=== PATIENT | female | born 2000 | race Caucasian/White ===

== ENCOUNTER 2024-03-28 10:36 | Outpatient (REF) | payer OTHER, MEDICARE, MEDICAID, SELFPAY ==
--- NOTE | ~2024-03-28 | XR_ITS ---
CLINICAL HISTORY: M25.571 - Pain in right ankle and joints of right foot 3 view right ankle Comparison: None Findings: No acute fractures or dislocations. No significant arthritic change or erosions. No ankle effusion. No radiopaque foreign body. IMPRESSION: 1. No acute findings. This document has been electronically signed by: Roel Gómez MD on 03/29/2024 14:57:09
--- OUTSIDE RECORDS SUMMARY | 2024-03-29 14:14 | XMS_ITS | Clinical Summary ---
Author Organization [facility] Address [address] [place] [address] Care Team Providers Care Flame Cutting Machine Operator Name Role Phone Unavailable Primary Care Provider [...]
--- OUTSIDE RECORDS SUMMARY | 2024-03-29 14:14 | XMS_ITS | Clinical Summary ---
Author Organization [facility] it Address [address] [place] [address] Care Team Providers Care Burrer Machine Name Role Phone Unavailable Primary Care Provider [...]
== END 2024-03-28 10:37 | disposition home or self-care (01) ==
LOC: HO.HOSX 10:36
PROVIDERS: Visit Provider Physician Assistant
DX: M25.571 Pain in right ankle and joints of right foot (principal); M76.71 Peroneal tendinitis, right leg; S93.401A Sprain of unspecified ligament of right ankle, initial encounter; V43.12XA Car passenger injured in collision with other type car in nontraffic accident, initial encounter; Y93.9 Activity, unspecified; Y92.410 Unspecified street and highway as the place of occurrence of the external cause; Y99.9 Unspecified external cause status
CPT/HCPCS: 73610

== ENCOUNTER 2024-03-28 13:48 | Outpatient (AMB) | payer OTHER, SELFPAY ==
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
[2024-03-28 14:17] VITALS: BMI 25.8
--- OUTSIDE RECORDS SUMMARY | 2024-03-28 16:03 | XMS_ITS | Data Portability ---
Author Organization [place] [facility] Address [address] [place] [address] Assessment Encounter Date Assessment Date Assessment LastModified by Organization Details LastModified Time 05/03/2022 05/03/2022 Sydney is in nee d of a PCP and [facility]. She was seen last year by packing attendant and is looking for an adult provider. She has significant mental health history and hospitalizations for mental health services. She is seen outpatient and not currently taking any medication as she reports poor response to medication and prefers marijuana use. She is unable to obtain a medical marijuana card without provider note. She has been seen for evaluation and met with medical marijuana program employee that is requiring provider sign off. We discussed that if this is for mental health it would likely need to come from current mental health provider. She reported understanding. She will need referral to mental health provider and counseling services. She will establish at [facility] and was given contact information. aegli Not available 05/03/2022 15:49:34 Plan of Treatment Reminders Order Date Submit Date Provider Last Modified By Organization Details Last Modified Time Details Appointments None record ed. Lab None record ed. Referral None record ed. Procedures None record ed. Surgeries None record ed. Imaging None record ed. Medication Orders None record ed. Patient TargetsNo targets recorded. Patient Instructions Encounter Date Encounter Id Patient Instructions Last Modified By Organization Details Last Modified Time 05/03/2022 [id number] Preventing Depression From Coming Back: Care Instructions aegli Not available 05/03/2022 15:49:35 learning about mood disorders aegli Not available 05/03/2022 15:49:35 iron deficiency anemia: care instructions aegli Not available 05/03/2022 15:49:35 Reason for Referral None Reported. Problems Name Problem SNOMED Code Status Onset Date Resolution Date Notes Provider Name and Address Organization Details Recorded Time Major depressive disorder 022723789 [facility] 023 [facility] 15:34:57 Mood disorder 30259224 Active 023 [facility] 15:35:16 Autistic disorder 322150918 [facility] 023 [facility] [facility] 15:35:33 Iron deficiency anemia 08577907 [facility] 15:38:08 Problem Notes None recorded. Medical Equipment None Reported. Allergies No known drug allergies Medications Name Sig Start Date Stop Date Status Note LastModified by Organization Details LastModified Time quetiapine 25 mg tablet TAKE 1 TABLET BY MOUTH DAILY AT BEDTIME active Not Available Not Available N ot Available clindamycin HCl 300 mg capsule TAKE 1 CAPSULE BY MOUTH THREE TIMES DAILY X10 DAYS active Not Available Not Available No t Available lamotrigine 25 mg tablet TAKE 3 TABLETS BY MOUTH DAILY active Not Available Not Available Not Available oxycodone-ac etaminophen 5 mg-325 mg tablet TAKE 1 TABLET BY MOUTH EVERY 6 HOURS NEEDED FOR PAIN FOR UP TO 3 DAYS active Not Available Not Available No t Available ondansetron 4 mg disintegrati ng tablet DISSOLVE 1 TABLET BY MOUTH EVERY 8 HOURS NEEDED active Not Available Not Available No t Available medroxyproge sterone 150 mg/mL intramuscula r suspension ADMINISTER 1 ML IN THE MUSCLE EVERY 3 MONTHS active Not Available Not Available No t Available cholecalcife rol (vitamin D3) 125 mcg (5,000 unit) capsule TAKE 1 CAPSULE BY MOUTH ONCE DAILY active Not Available Not Available No t Available amoxicillin 875 mg-potassium clavulanate 125 mg tablet TAKE 1 TABLET BY MOUTH TWICE DAILY active Not Available Not Available No t Available FeroSul 325 mg (65 mg iron) tablet TAKE 1 TABLET BY MOUTH THREE TIMES DAILY active Not Available Not Available Not Available Vitals Date Recorded Body height Provider Name an d Address Organization Details Last Updated DateTime 05/03/2022 175.26 cm Margarita Vasquezfmann [facility] 05/03/2022 13:40:42 Date Recorded Body mass index (BMI) Percentile per age and sex Body mass index (BMI) Body weight Provider Name and Address Organization Details Last Updated DateTime 05/03/2022 97 % 35.6 kg/m2 465310.76 g Margaritanic Lomax [facility] /[place] 05/03/2022 13:41:03 Social History Question Answer Notes LastModified by Organizat ion Details LastModified Time Tobacco Smoking Status Never Smoker Margarita Vasquezraoul beltrán, [facility]/ [place] 05/03/2022 13:42:46 Do You Have An Advance Directive? No Information not available 05/03/2022 Are You Currently Employed? No Information not available 05/03/2022 What Type Of Diet Are You Following? REGULAR Information not available 05/03/2022 What Is The Highest Grade Or Level Of School You Have Completed Or The Highest Degree You Have Received? [id number] Information not available 05/03/2022 How Many Days Of Moderate To Strenuous Exercise, Like A Brisk Walk, Did You Do In The Last 7 Days? 2 Information not available 05/03/2022 Have You Had An Unplanned Hospital Admission In The Last Year? No Information not available 05/03/2022 Have You Had An Unplanned Hospital Admission In The Last 30 Days? No Information not available 05/03/2022 Have You Had An ER Visit Since You Were Last Seen? Yes Information not available 05/03/2022 Do You Have A Medical Power Of Supervisor Stone? No Information not available 05/03/2022 How Many Children Do You Have? 0 Information not available 05/03/2022 Do You Use Protection During Sex? Always Information not available 05/03/2022 What Is Your Relationship Status? Unknown Information not available 05/03/2022 Do You Use Your Seat Belt Or Car Seat Routinely? Yes Information not available 05/03/2022 Are You Sexually Active? Yes Information not available 05/03/2022 Are There Any Smokers In Your House? Yes Information not available 05/03/2022 Do You Feel Stressed (tense, Restless, Nervous, Or Anxious, Or Unable To Sleep At Night)? [id number] Information not available 05/03/2022 Do You Use Any Illicit Or Recreational Drugs? No Information not available 05/03/2022 Do You Use Sunscreen Routinely? Yes Information not available 05/03/2022 Sex: Unknown Functional Status None recorded. Mental Status None recorded. Family History Relationship Description Onset Age of this Age Resolved Age Notes LastModified by Organization Details LastModified Time Maternal Grandmother Migraine Not available 07/2022 13:42:38 Maternal Grandmother Diabetes mellitus Not available 2022 13:42:38 Mother Asthma Not available 05/03/2022 13:42:38 Mother Anxiety disorder Not available 2022 13:42:38 Mother Depressive disorder Not available 2022 13:42:38 Mother Migraine Not availabl e 05/03/2022 13:42:38 Mother Sleep disorder Not available 2022 13:42:38 Mother Blood coagulation disorder Not available 2022 13:42:38 Mother Kidney disease Not available 2022 13:42:38 Father Depressive disorder Not available 2022 13:42:38 Father Substance abuse Not available 2022 13:42:38 Father Mental disorder Not available 2022 13:42:38 Unspecified Relation Asthma Not available 023 13:42:38 Unspecified Relation Anxiety disorder Not available 2022 13:42:38 Unspecified Relation Malignant tumor of breast Not available 2022 13:42:38 Unspecified Relation Depressive disorder Not available 2022 13:42:38 Unspecified Relation Malignant tumor of lung Not available 2022 13:42:38 Unspecified Relation Malignant tumor of colon Not available 2022 13:42:38 Unspecified Relation Malignant tumor of ovary Not available 2022 13:42:38 Unspecified Relation Migraine Not available 2022 13:42:38 Unspecified Relation Sleep disorder Not available 2022 13:42:38 Unspecified Relation Family history unknown Not available 2022 13:42:38 Unspecified Relation Obesity Not available 023 13:42:38 Unspecified Relation Heart disease Not available 2022 13:42:38 Unspecified Relation Blood coagulation disorder Not available 2022 13:42:38 Unspecified Relation Substance abuse Not available 2022 13:42:38 Unspecified Relation Diabetes mellitus Not available 2022 13:42:38 Unspecified Relation Mental disorder Not available 2022 13:42:38 Unspecified Relation Kidney disease Not available 2022 13:42:38 Medical History Condition Response Other N Stroke (CVA) N LOCK FITTER Disease/Disorder N Colon Cancer N Tonsil Infections N Breast Cancer N Depression Y Glaucoma N Nasal or Sinus Problems N Liver Disease/Disorder N Respiratory Disease/Disorder N Muscle, Joint, or Bone Problems N Autoimmune disease N Colon Disease/Disorder N Vision or Eye Problems N Mood Disorder, other Y Cancer, other N Neurologic Disease/Disorder N Skin Condition N High blood pressure N Elevated Cholesterol/Triglycerides N Anxiety Y Ear or Hearing Problems N Coronary Artery Disease (CAD) N Blood Clot (DVT/PE) N Anemia Y Kidney Disease/Disorder N Peripheral Vascular Disease (PVD) N Diabetes N Seizures/Epilepsy N Urinary Disease/Disorder N Osteopenia/Osteoporosis N Heart Attack N Substance Abuse N Bipolar Disorder Y Sleep Apnea N GERD/Reflux N Hepatitis N Heart Failure N Thyroid Disease/Disorder N Gynecological HistoryNo gynecological history recorded. Obstetrics History GPAL:G 0 P 0 0 0 0 Past Encounters Encounter ID Performer Location Encounter Start Date Encounter Closed Date Diagnosis/Indication Diagnosis SNOMED-CT Code Diagnosis ICD10 Code Diagnosis Note [id number] Lyric Ramos [facility] ([facility] [address] [place] [address] 05/03/2022 13:37:23 05/03/2022 16:32:18 Iron deficiency anemia 35328553 D50.9 She will need CBC and iron studies. Major depr essive disorder 599045131 F32.9 She will need a new referral to local provider to start counseling and medication recommenda tions. No medication s at present. Discussed use of crisis interventi on. No SI/HI or active plan at present. Records to be requested at in person visit. Mood disorder 24383209 F 39 She will need a new referral to local provider to start counseling and medication recommenda tions. No medication s at present. Records to be requested at in person visit. Health Concerns Section Related Observation LastModified by Organization Detai ls LastModified Time None Recorded Concern Status LastModified by Organization Details LastModified Time None Recorded Advance Directives Directive N: Payers Encounter Date Sequence Insurance Name Policy Number Policy Hendrickson Covered Member ID Hendrickson Member ID Guarantor Name 05/03/2022 2 [place] [facility] Sydney Hallman [id number] Sydney Hallman Notes Date Note Type Note Provider Name and Address Organization Details Recorded Time 05/03/2022 text/html Sydney is new establish patient. She was last seen by packing attendant in [place], [place] at [facility], July 2021. Mental HealthShe has significant history of ASD, major depression, mood disorder. She is currently seen by [facility] behavioral health for mental health medication but has not been to counseling. She has tried lamictal, seroquel, trazadone for medication but is not taking any of these to date or for the past 6 months. She has been self medicating with marijuana, but is unable to get medical marijuana card with out physician note. She would like to see another mental health provider with more services and trauma counseling. she denies any SI/HI or intrusive thoughts at present, though had SI about a week ago with no plan. She is calling crisis intervention about 3 times per week for feeling depressed and behavior changes. Her mother is present during this conversation and reports prior DCYF involvement due to mental health history and numerous hospitalizations. She reports last hospitalization was in 2019 [place], though [facility] set this up and she is not sure of the facility. Prior she was hospitalized in [place], [place]; [place], [place] in both behavioral and CBAT units inpatient.She denies any ESTELLA except for daily marijuana use. Family HistoryShe has family history or schizophrenia including her father, uncle, paternal cousin and maternal cousin. Mother is a and suffers from PTSD. Sydney denies any hallucinations at present. Medical historyPoor dental hygeine and dental caries/abcess due to sensory issues. Recent extraction of 10 teeth.MANUELITO- was on supplementation until 2 months ago. Asymptomatic. CHAPIS Diaz - [facility] 05/03/2022 15:49:45 OBGyn Episode No OBEpisode recorded.
--- OUTSIDE RECORDS SUMMARY | 2024-03-28 16:03 | XMS_ITS | Clinical Summary ---
Author Organization [facility] Address [address] [place] [address] Care Team Providers Care Raw Juice Weigher Name Role Phone Unavailable Primary Care Provider Unavailabl e Allergies Active Allergy Reactions Criticality Noted Date Comments Midazolam 03/26/2022 Medications Medication Sig Dispensed Refills Start Date End Date Status ondansetron (ZOFRAN-ODT) 4 MG disintegrating tablet Take 1 tablet (4 mg total) by mouth every 8 (eight) hours as needed for nausea. 12 tablet 0 03/26/2022 Active HYDROcodone-acetamino phen (NORCO) 5-325 MG per tablet Take 1 tablet by mouth every 6 (six) hours as needed for pain. 12 tablet 0 05/23/2022 Active ibuprofen 600 MG tablet Take 1 tablet (600 mg total) by mouth every 6 (six) hours as needed for pain. 20 tablet 0 05/23/2022 Active albuterol 108 (90 Base) MCG/ACT inhaler Inhale 2 puffs into the lungs every 4 (four) hours as needed for wheezing or shortness of breath. 1 each 0 05/23/2022 Active oxyCODONE (ROXICODONE) 5 MG immediate release tablet Take 1 tablet (5 mg total) by mouth every 6 (six) hours as needed for pain. 12 tablet 0 06/18/2022 Active diphenhydrAMINE (BENADRYL) 25 mg capsule Take 1 capsule (25 mg total) by mouth every 6 (six) hours as needed for itching or allergies (Migraine type headache). 30 capsule 0 06/18/2022 Active ibuprofen 600 MG tablet Take 1 tablet (600 mg total) by mouth every 6 (six) hours as needed for pain. 30 tablet 0 06/18/2022 Active ondansetron (ZOFRAN-ODT) 8 MG disintegrating tablet Take 0.5 tablets (4 mg total) by mouth every 8 (eight) hours as needed for nausea. 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 04/27/2022 Social History Tobacco Use Types Packs/Day Years Used Date Smoking Tobacco: Some Days Cigarettes Smokeless Tobacco: Never Tobacco Cessation:Ready to Q uit: Not Asked; Counseling Given: Not Answered Sex and Gender Information Value Date Recorded Sex Assigned at Female 03/26/2022 6:13 PM EST Gender Identity Female 06/18/2022 2:32 AM EDT Sexual Orientation Not on file Job Start Date Occupation Industry Not on file Not on file Not on file Last Filed Vital Signs Vital Sign Reading Time Taken Comments Blood Pressure 118/68 06/18/2022 5:47 AM EDT Pulse 68 06/18/2022 5:47 AM EDT Temperature 36.7 ??C (98.1 ??F) 06/18/2022 5:47 AM ED T Respiratory Rate 16 06/18/2022 5:47 AM EDT Oxygen Saturation 98% 06/18/2022 5:47 AM EDT Inhaled Oxygen Concentration - - Weight 112 kg (247 lb) 04/27/2022 5:57 PM EST Height 175.3 cm (5' 9 ) 04/27/2022 5:57 PM EST Body Mass Index 36.48 04/27/2022 5:57 PM EST Plan of Treatment Health Maintenance Due Date Last Done Comments Hepatitis C Screening 2002 Hepatitis B Vaccines (3 of 3 - 3-dose series) 05/17/2003 03/22/2003, 2002 Pneumococcal Vaccine (1 of 1 - PPSV23 or PCV20) 2008 11/27/2003, 2002, 2002, Additional history exists Depression Screening 2014 Gonorrhea and Chlamydia Screening 05/23/2015 Preventative Health Evaluation 2020 DTap / Tdap / Td (4 - Tdap) 05/22/202110/29, 2002, 2002 Cervical Cancer Screening (Pap Smear) 05/23/2023 COVID-19 Vaccine ( season) 2023 09/28/2021, 08/14/2020, 07/24/2020 Influenza Vaccine (#1) 2023 0, 12/14/2018, 02/07/2018, Additional history exists RSV Ped < 20 months Aged Out No longe r eligible based on patient's age to complete this topic
--- OUTSIDE RECORDS SUMMARY | 2024-03-28 16:03 | XMS_ITS | Clinical Summary ---
[facility] Address [address] [place] [address] Care Team Providers Care Glass Tube Bender Name Role Phone Unavailable Primary Care Provider Unavailabl e Medical History Medical History Date Comments Autism DX:Autism Asthma DX:Asthma Social History Tobacco Use Types Packs/Day Years Used Date Smoking Tobacco: Some Days Smokeless Tobacco: Never Sex and Gender Information Value Date Recorded Sex Assigned at Not on file Gender Identity Not on file Sexual Orientation Not on file Obstetrics History Plan of Treatment Health Maintenance Due Date Last Done Comments Gonorrhea/Chlamydia Screening 2002 Pneumococcal Vaccine: Pediat rics (0 to 5 Years) and At-Risk Patients (6 to 64 Years) (1 of 2 - PCV) 2008 HPV Vaccines (1 - 3-dose series) 2017 DTaP,Tdap,and Td Vaccines (1 - Tdap) 2021 Hepatitis B Vaccines (1 of 3 - 19+ 3-dose series) 2021 Annual Well Child Visit (3-2 1 years old) 01/26/2022 Depression Screening 01/26/2022 HIV Screening 01/26/2022 Hepatitis C Screening 01/26/2022 Social Influencers of Health Screening 01/26/2022 Cervical Cancer Screening: P ap Smear 05/23/2023 COVID-19 Vaccine ( - 2023-2 5 season) 2023 Influenza Vaccine (#1) 2023 HIB Vaccines Aged Out No longer eligi ble based on patient's age to complete this topic Hepatitis A Vaccines Aged Out No long er eligible based on patient's age to complete this topic IPV Vaccines Aged Out No longer eligi ble based on patient's age to complete this topic MMR Vaccines Aged Out No longer eligi ble based on patient's age to complete this topic Meningococcal ACWY Vaccine Aged Out N o longer eligible based on patient's age to complete this topic RSV Immunization Patients Un estephania 20 months Aged Out No longer eligible b ased on patient's age to complete this topic Varicella Vaccines Aged Out No longer eligible based on patient's age to complete this topic
== END 2024-03-28 14:53 | disposition home or self-care (01) ==
PROVIDERS: Visit Provider Physician Assistant
DX: S93.401A Sprain of unspecified ligament of right ankle, initial encounter (principal); M76.71 Peroneal tendinitis, right leg; V49.59XA Passenger injured in collision with other motor vehicles in traffic accident, initial encounter; Z04.3 Encounter for examination and observation following other accident
CPT/HCPCS: 99203; G2211

== ENCOUNTER → 2024-03-28 13:58 | Outpatient (BNV) | payer OTHER, MEDICARE, MEDICAID, SELFPAY | PROVIDERS: Visit Provider Radiology Diagnostic Radiology | DX: M25.571 Pain in right ankle and joints of right foot (principal) | CPT/HCPCS: 73610 ==

== ENCOUNTER 2024-05-23 12:47 | Outpatient (AMB) | payer OTHER, MEDICARE, MEDICAID, SELFPAY ==
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
[2024-05-23 12:50] VITALS: BMI 25.8
== END 2024-05-23 13:40 | disposition home or self-care (01) ==
LOC: HO.HOS 12:47
PROVIDERS: Visit Provider Physician Assistant
DX: S93.401A Sprain of unspecified ligament of right ankle, initial encounter (principal); M76.71 Peroneal tendinitis, right leg; Z04.3 Encounter for examination and observation following other accident
CPT/HCPCS: 99213; G2211

== ENCOUNTER 2024-10-09 13:00 | Outpatient (AMB) | payer MEDICARE, OTHER, SELFPAY ==
--- NOTE | 2024-10-09 13:05 | MHC.OFFVIS ---
Vital Signs 10/09/24 13:17 Height 5 ft 10 in Weight 177 lb BMI 25.4 BP 118/72 Blood Pressure Location Rt brachial Position Sitting Pulse 70 Pulse Source Pulse Oximeter Pulse Oximetry (%) 98 Oxygen Delivery Method Room Air Intake Visit Reasons: Severe Constipation Intake Note: New pt for initial eval of reportedly severe CIC. CC: C.O. severe constipation despite current therapy, BRB per rectum intermittently, umbilical abd pain intermittently. Pt denies any additional sx at this time. Boot Lace Cutter Machine Required: No Accompanied by: Self / Same As Patient Allergies midazolam (From Versed) Allergy (Verified 10/09/24 13:05) combative HPI HPI Severe Constipation: Details: 24-year-old F trans to M is presenting to our office for initial consultation. Patient has been dealing with constipation since his teenage years. Currently he is taking Dulcolax 1-2 tablets along with Colace. Patient reports that usually it has no affect. Sometimes no bowel movement for over a week. Today patient reports last bowel movement was week ago. Multiple visits to ED for abdominal pain caused by severe constipation. At one point patient was seen in the ER, CT scan show abundance of stool, unable to pass the stool. Unable to digitally remove stool. Patient reports that his mom also suffers from constipation. In the past week patient reports increased acid reflux and dyspepsia without dysphagia or odynophagia. Patient reports that happens to him when he is constipated for long period of time. Abdominal pain upper abdomen, however patient reports that when he is constipated for a long time the pain is throughout the his all abdomen. Occasional blood in the stool when he is straining. Reports occasionally black stool. [facility] Medical History Constipation Surgical History History of tonsillectomy History of dental surgery Social History Patient Tobacco Use Status: Never used Tobacco Current occupational status: unemployed Review of Systems Const Denies weight gain and Denies weight loss ENT Reports no additional complaints, Denies dysphagia and Denies odynophagia Card Reports no additional complaints Resp Reports no additional complaints GI Reports abdominal pain, Denies belching, Denies melena, Denies bloating, Denies change in bowel habits, Reports constipation, Denies dysphagia, Denies excessive flatus, Denies dyspepsia, Denies heartburn, Denies diarrhea, Denies loose stools, Denies nausea, Denies odynophagia and Denies vomiting Reports no additional complaints Musc Reports no additional complaints Neuro Reports no additional complaints Psych Reports no additional complaints Endo Reports no additional complaints Physical Exam Vital Signs: Last Vital Signs Pulse 70 10/09/24 13:17 BP 118/72 10/09/24 13:17 Pulse Ox 98 10/09/24 13:17 Oxygen Delivery Method Room Air 10/09/24 13:17 BMI result Body Mass Index 25.4 Const General: healthy appearing, no acute distress and well developed Nutritional Appearance: well nourished Orientation/consciousness: patient oriented x3 Resp Effort & Inspection: normal respiratory effort, able to speak in complete sentences, no tracheal deviation and symmetric chest movement Auscultation: clear to auscultation bilaterally Cardio Rate: regular rate GI Inspection: Yes normal to inspection and No distended Palpation (GI): Soft to palpation, not firm, nontender and No hepatosplenomegaly present Auscultation: normal bowel sounds General: Yes no CVA tenderness Back/Spine/Pelvis Back: no CVA tenderness Skin General skin exam: elasticity normal, turgor normal and dry skin Neuro General: patient oriented x3 Psych Appearance: grossly normal Mental Status: mental status grossly normal Assessment & Plan Assessment & Plan (1) Constipation: Code(s): K59.00 - Constipation, unspecified Qualifiers: Constipation type: slow transit constipation Qualified Code(s): K59.01 - Slow transit constipation (2) IBS (irritable bowel syndrome): Code(s): K58.9 - Irritable bowel syndrome, unspecified Qualifiers: Irritable bowel syndrome type: with constipation Qualified Code(s): K58.1 - Irritable bowel syndrome with constipation (3) GERD (gastroesophageal reflux disease): Code(s): K21.9 - Gastro-esophageal reflux disease without esophagitis Qualifiers: Esophagitis presence: esophagitis presence not specified Qualified Code(s): K21.9 - Gastro-esophageal reflux disease without esophagitis (4) Abdominal pain: Code(s): R10.9 - Unspecified abdominal pain Qualifiers: Abdominal location: generalized Qualified Code(s): R10.84 - Generalized abdominal pain Plan Patient was encouraged to increase fluid intake and activity to promote better bowel motility. Patient can try fiber with pre info biotics. Magnesium citrate given to him he can take it half of bilateral when he gets home and if no results in 2-3 hours he can take a 2nd have. He can use it as needed if no bowel movements for 2-3 days. I will start him on Amitiza. Tried starting patient on Linzess, however insurance does not cover it. Patient will return in 3 weeks. He will call us if he will have worsening symptoms. He is agreeable to this plan and verbalizes understanding of instructions. He was given the opportunity to ask questions and all questions answered. Thank you for allowing me to participate in his care Medications: New lubiprostone (Amitiza) 24 mcg PO DAILY 30 caps 3RF K59.04 - Chronic idiopathic constipation magnesium citrate (Citrate of Magnesia oral) 150 mL PO DAILY PRN 296 mL 5RF constipation K59.00 - Constipation, unspecified Coding Level of Care Code New Pt Level 4 (63750) Diagnoses Slow transit constipation K59.01 Constipation type: slow transit constipation Irritable bowel syndrome with constipation K58.1 Irritable bowel syndrome type: with constipation Gastroesophageal reflux disease, unspecified whether esophagitis present K21.9 Esophagitis presence: esophagitis presence not specified Generalized abdominal pain R10.84 Abdominal location: generalized Time Spent (min) 50 Comment 35 minutes spent with patient and additional 15 minutes spent reviewing his records
[2024-10-09 13:17] VITALS: BP 118/72; PULSE 70; O2SAT 98; BMI 25.4
--- OUTSIDE RECORDS SUMMARY | 2024-10-09 13:48 | XMS_ITS | Clinical Summary ---
Author Organization [facility] Address [address] [place] [id number] Care Team Providers Care Electric Blanket Packer Name Role Phone Javan Baca Primary Care Provider [phone] Allergies Active Allergy Reactions Criticality Noted Date Comments Midazolam Other (See Comments),Unknown/Patie nt and Family Unable to Define High 03/25/2022 combative pt has a paradoxical reaction to Versed. Becomes agitated and combative. Medications lactulose (ENULOSE) 10 gm/15 mL solution Take 10-20 mL (6.6667-13.33 33 g total) by mouth daily as needed (constipation ). take with eight ounces of water 320 mL 08/15/2024 Active docusate sodium (COLACE) 100 MG capsule Take 1-2 capsules (100-200 mg total) by mouth nightly as needed for constipation. Take with of water 30 capsule 08/15/2024 Active linaclotide (LINZESS) 145 MCG Cap capsule Take 1 capsule (145 mcg total) by mouth every morning before breakfast. 30 capsule 08/19/2024 Active tamsulosin (FLOMAX) 0.4 MG capsuleIndicati ons:Urinary retention with incomplete bladder emptying Take 1 capsule (0.4 mg total) by mouth daily. 30 capsule 1 08/22/2024 Active Active Problems Problem Noted Date Diagnosed Date Urinary retention with incomplete bladder emptyi ng 08/22/2024 Encounters Date Type Department Care Team Description 08/22/2024 1:45 PM EDT Office Visit [facility] [address] [place] [address] [place] [phone] Dixon Castillo MD Urinary retention with incomplete bladder emptying (Primary Dx) 08/22/2024 Travel 08/19/2024 10:08 AM EDT - 08/19/2024 6:33 PM EDT Emergency [facility] Emergency Department [address] [place] [phone] Kady De Los Santos MD Constipation (Primary Dx) Discharge Disposition: Home or Self Care 08/19/2024 Travel 08/16/2024 2:05 PM EDT - 08/16/2024 4:32 PM EDT Emergency [facility] Emergency Department [address] [place] [phone] Sawyer Cevallos APRN Generalized weakness (Primary Dx); Constipation Discharge Disposition: Home or Self Care 08/15/2024 1:21 AM EDT - 08/15/2024 1:[address] [facility] Emergency Department [address] [place] [phone] Alise Erwin PA-C Constipation (Primary Dx); Urinary retention Discharge Disposition: Home or Self Care 08/15/[address] [phone] System, Provider Not In 08/14/2024 Travel from Last 3 Months Social History Tobacco Use Types Packs/Day Years Used Date Smoking Tobacco: Unknown Tobacco Cessation:Counseling Given: Not Answered Comments No Sex and Gender Information Value Date Recorded Sex Assigned at Female 06/16/2024 8:43 PM EDT Legal Sex Female 7:53 PM EDT Gender Identity Transgender Male 06/16/2024 8:43 PM EDT Sexual Orientation Choose not to disclose 2024 8:43 PM EDT Last Filed Vital Signs Vital Sign Reading Time Taken Comments Blood Pressure 117/78 08/22/2024 1:41 PM EDT Pulse 93 08/22/2024 1:41 PM EDT Temperature 36.9 C (98.4 F) 08/19/2024 10:07 AM EDT Respiratory Rate 18 08/19/2024 5:04 PM EDT Oxygen Saturation 99% 08/19/2024 5:04 PM EDT Inhaled Oxygen Concentration - - Weight 85.5 kg (188 lb 7.9 oz) 08/19/2024 10:07 AM EDT Height 180.3 cm (5' 11 ) 08/19/2024 10:07 AM EDT Body Mass Index 26.29 08/19/2024 10:07 AM EDT Plan of Treatment Health Maintenance Due Date Last Done Comments Hepatitis C Virus Screening 2002 HIV Screening 05/23/2015 HPV Vaccines (1 - 3-dose series) 2017 DTaP/Tdap/Td Vaccines (1 - Tdap) 2021 Hepatitis B Vaccines (1 of 3 - 19+ 3-dose series) 2021 Pneumococcal Vaccine: Pediat keven (0-5 Years) and At-Risk Patients (6 to 49 Years) (1 of 2 - PCV) 2021 Pap Smear (Ages 21-65) 05/23/2023 COVID-19 Vaccine ( - 2023-2 5 season) 2023 09/28/2021, 08/14/2020, 07/24/2020 Influenza Vaccine 09/28/2024 04/27/2024, , 12/14/2018, Additional history exists Procedures Procedure Name Priority Date/Time Associated Diagnosis Comments URINALYSIS WITH REFLEX TO MICROSCOPIC AND CULTURE STAT 08/19/2024 1:08 PM EDT LACTIC ACID, PLASMA STAT 08/19/2024 1 2:18 PM EDT LIPASE STAT 08/19/2024 12:18 PM EDT MAGNESIUM STAT 08/19/2024 12:18 PM EDT COMPREHENSIVE METABOLIC PANEL STAT 08/19/2024 12:18 PM EDT COMPLETE BLOOD COUNT, WITH DIFFERENTIAL STAT 08/19/2024 12:18 PM EDT LIPASE STAT 08/16/2024 2:44 PM EDT COMPREHENSIVE METABOLIC PANEL STAT 08/16/2024 2:44 PM EDT COMPLETE BLOOD COUNT, WITH DIFFERENTIAL STAT 08/16/2024 2:44 PM EDT URINALYSIS WITH REFLEX TO MICROSCOPIC AND CULTURE STAT 08/15/2024 10:[address] ABDOMEN+PELVIS W/CONTRAST STAT 08/15/2024 7:31 AM EDT BETA-HCG, QUALITATIVE Routine 08/15/2024 2:01 AM EDT LIPASE STAT 08/15/2024 2:01 AM EDT COMPREHENSIVE METABOLIC PANEL STAT 08/15/2024 2:01 AM EDT COMPLETE BLOOD COUNT, WITH DIFFERENTIAL STAT 08/15/2024 2:01 AM EDT XR ABDOMEN 1 VIEW STAT 08/14/2024 10: 11 PM EDT from Last 3 Months Results * Urinalysis with Reflex to Microscopic and Culture (08/19/2024 1:08 PM EDT) Only the most recent of2 resultswithin the time period is included. Color Straw 08/19/2024 1:18 PM EDT [facility] Clarity Clear 08/19/2024 1:18 PM EDT [facility] Specific Points 1.008 1.003 - 1.030 08/19/2024 1:18 PM EDT [facility] pH 7.0 5.0 - 8.0 08/19/2024 1:18 PM EDT [facility] Leukocyte Esterase Negative Negative 08/19/2024 1:18 PM EDT [facility] Nitrite Negative Negative 08/19/2024 1:18 PM EDT [facility] Protein Negative Negative 08/19/2024 1:18 PM EDT [facility] Glucose Negative Negative mg/dL 08/19/2024 1:18 PM EDT [facility] Ketones Negative Negative 08/19/2024 1:18 PM EDT [facility] Blood Negative Negative 08/19/2024 1:18 PM EDT [facility] Bilirubin Negative Negative 08/19/2024 1:18 PM EDT [facility] Urine Urine specimen obtained by clean catch procedure / Unknown 08/19/2024 1:08 PM EDT 08/19/2024 1:12 PM EDT Kady De Los Santos MD URINE ORDERABLES Final Res ult [facility] [address] [place] [address], [facility] [address] [place] [address] * (ABNORMAL) Complete Blood Count, with Differential (08/19/2024 12:18 PM EDT) Only the most recent of3 resultswithin the time period is included. White Blood Cell Count 9.2 4.0 - 11.0 Thou/uL 08[facility] Platelet Count 260 150 - 450 Thou/uL 08/19/2024 12:[facility] Hemoglobin 14.9 11.7 - 15.7 g/dL 08/19/2024 12:30 PM EDT [facility] Hematocrit 44.7 35.0 - 47.0 % 08/19/2024 12:30 PM EDT [facility] Red Blood Cell Count 5.03 4.00 - 5.40 Mil/uL 08/19/2024 12:30 [facility] MCV 89 80 - 100 fL 08/19/2024 12:30 PM EDT [facility] MCH 29.6 26.0 - 34.0 pg 08/19/2024 12:30 PM EDT [facility] MCHC 33.3 30.0 - 36.0 g/dL 08/19/2024 12:30 PM EDT [facility] RDW 13.5 11.5 - 14.5 % 08/19/2024 12:30 PM EDT [facility] MPV 10.6 7.5 - 12.5 fL 08/19/2024 12:30 PM EDT [facility] Neutrophils Auto 61.1 % 08/20/19 12:30 PM EDT [facility] Immature Granulocytes 0.3 % 08/19/2024 12:30 PM EDT [facility] Lymphocytes Auto 23.9 % 08/20/19 12:30 PM EDT [facility] Monocytes Auto 5.7 % 08/19/2024 12:30 PM EDT [facility] Eosinophils Auto 8.5 % 08/20/19 12:30 PM EDT [facility] Basophils Auto 0.5 % 08/19/2024 12:30 PM EDT [facility] Abs Neutrophils Auto 5.58 2.00 - 7.50 Thou/uL 08/19/2024 12:30 PM EDT [facility] Abs Immature Granulocytes 0.03 0.00 - 0.10 Thou/uL 08/19/2024 12:30 PM EDT [facility] Abs Lymphocytes Auto 2.19 1.50 - 4.50 Thou/uL 08/19/2024 12:30 PM EDT [facility] Abs Monocytes Auto 0.52 0.20 - 1.50 Thou/uL 08/19/2024 12:30 PM EDT [facility] Abs Eosinophils Auto 0.78(H) 0.00 - 0.70 Thou/uL 08/19/2024 12:30 PM EDT [facility] Abs Basophils Auto 0.05 0.00 - 0.20 Thou/uL 08/19/2024 12:30 PM EDT [facility] Blood Blood specimen / Unknown 08/19/2024 12:18 PM EDT 08/19/2024 12:20 PM EDT Kady De Los Santos MD LAB BLOOD ORDERABLES Final Result [facility] [address] [place] [address], [facility] [address] [place] [address] * Magnesium (08/19/2024 12:18 PM EDT) Magnesium 2.0 1.6 - 2.7 mg/dL 08/19/2024 12:52 PM EDT [facility] Blood Blood specimen / Unknown 08/19/2024 12:18 PM EDT 08/19/2024 12:20 PM EDT Kady De Los Santos MD LAB BLOOD ORDERABLES Final Result Performing Organization Address [facility] Co de Phone Number [facility] [address] [place] [address], [place] [address] * Lipase (08/19/2024 12:18 PM EDT) Only the most recent of3 resultswithin the time period is included. Lipase 25 13 - 60 U/L 08/19/2024 12:52 PM EDT [facility] Blood Blood specimen / Unknown 08/19/2024 12:18 PM EDT 08/19/2024 12:20 PM EDT Kady De Los Santos MD LAB BLOOD ORDERABLES Final Result Performing Organization Address [facility] de Phone Number [facility] [address] [place] [address], [place] [address] * Lactic Acid, Plasma Now and repeat in 2h (08/19/2024 12:18 PM EDT) Lactic Acid 0.8 0.5 - 1.9 mmol/L 08/19/2024 12:50 PM EDT [facility] Blood Blood specimen / Unknown 08/19/2024 12:18 PM EDT 08/19/2024 12:20 PM EDT Kady De Los Santos MD LAB BLOOD ORDERABLES Final Result Performing Organization Address [facility] Co de Phone Number [facility] [address] [place] [address], [place] [address] * (ABNORMAL) Comprehensive Metabolic Panel (08/19/2024 12:18 PM EDT) Only the most recent of3 resultswithin the time period is included. Glucose 90 65 - 99 mg/dL 08/19/2024 12:52 PM [facility] Comment:Fasting: <100 mg/dL, Non-Fasting: <200 mg/dL (ADA 2004) Blood Urea Nitrogen (BUN) 7(L) 8 - 21 mg/dL 08/19/2024 12:52 PM [facility] Creatinine 0.8 0.4 - 1.1 mg/dL 08/19/2024 12:52 PM [facility] eGFR >90 >59 08/19/2024 12:52 PM [facility] Comment:CKD-EPI (2020) in mL /min/1.73 sq meters. Sodium 139 136 - 145 mmol/L 08/19/2024 12:52 PM [facility] Potassium 4.8 3.4 - 5.3 mmol/L 08/19/2024 12:52 PM [facility] Comment:Specimen hemolyzed. Results may be artifactually elevated. Chloride 105 98 - 107 mmol/L 08/19/2024 12:52 PM [facility] CO2 23 22 - 33 mmol/L 08/19/2024 12:52 PM [facility] Calcium 9.7 8.7 - 10.5 mg/dL 08/19/2024 12:52 PM [facility] Alkaline Phosphatase 68 32 - 122 U/L 08/19/2024 12:52 PM [facility] Aspartate Aminotrans (AST) 24 10 - 50 U/L 08/19/2024 12:52 PM [facility] Comment:Specimen hemolyzed. Results may be artifactually elevated. Alanine Aminotrans (ALT) 13 10 - 50 U/L 08/19/2024 12:52 PM [facility] Comment:Specimen hemolyzed. Results may be artifactually elevated. Bilirubin, Total 0.5 0.2 - 1.0 mg/dL 08/19/2024 12:52 PM [facility] Protein, Total 7.4 6.3 - 8.3 g/dL 08/19/2024 12:52 PM [facility] Albumin 4.6 3.5 - 5.0 g/dL 08/19/2024 12:52 PM [facility] BUN/Creatinine Ratio 9(L) 10.0 - 25.0 Ratio 08/19/2024 12:52 PM [facility] Globulin 2.8 1.5 - 3.9 g/dL 08/19/2024 12:52 PM EDT [facility] Albumin/Globulin Ratio 1.6 Ratio 08/19/2024 12:52 PM EDT [facility] Anion Gap 11 7 - 17 08/19/2024 12:52 PM EDT [facility] Blood Blood specimen / Unknown 08/19/2024 12:18 PM EDT 08/19/2024 12:20 PM EDT Kady De Los Santos MD LAB BLOOD ORDERABLES Final Result [facility] [address] [place] [address], [facility] [address] [place] [address] * CT Abdomen+pelvis w/contrast (08/15/2024 7:31 AM EDT) Anatomical Region Laterality Modality Abdomen, Pelvis Computed Tomogra phy 08/15/2024 7:42 AM EDT Impressions 08/15/2024 7:59 AM EDT 1. No acute abnormality is seen in the abdomen or pelvis. 2. The rectum is stool-filled. Fluid-filled right colon with no wall thickening or disproportionate dilatation. 3. No evidence for an acute inflammatory process related to the bowel or an obstruction. Normal appendix. Narrative 08/15/2024 7:59 AM EDT COMPARISON: KUB from overnight. ORAL CONTRAST: None. INTRAVENOUS CONTRAST: 100.0 mL of Omnipaque 350. No adverse events occurred. TECHNIQUE: Contrast-enhanced axial images through the abdomen and pelvis. Multiplanar reformats. To lessen exposure, iterative reconstruction was employed. FINDINGS: Ferryboat Pilot Film: Mildly dilated colon, air-filled to the mid descending colon level. Axial Skeleton: Degenerative changes are present, mild at the lower lumbar disc levels and the pubic symphysis. Lung Bases: Dependent changes posteriorly. Abdomen: There is minimal low-density along the right side of the falciform ligament that looks like focal fat. The liver, gallbladder, right adrenal gland, left adrenal gland, spleen and pancreas have a normal appearance. Nephrograms are symmetric. There are no perinephric inflammatory changes. There are 2 punctate densities in the upper right kidney (series 3 image 91) that look more like excreted contrast than stones. No acute kidney stones. Retroperitoneum: Visceral vessels enhance normally. There is a small soft tissue nodule just ventral to the left link which measures about 7 mm in short axis. This may be a lymph node or a lymphatic structure. Doubtful clinical significance. Small left periaortic nodes and distal left external iliac nodes. No adenopathy. Bowel: Oral contrast was not used. The stomach and C-sweep, left upper quadrant small bowel are unremarkable. Fluid and stool filled colon. The appendix is seen (series 2 image 66) and is not abnormal. No findings to suggest a bowel obstruction or acute inflammatory process. Stool-filled rectum. Pelvis: Small inguinal nodes. The bladder is distended but not abnormal. 2 cm cyst right ovary. The anteverted uterus looks normal. No free pelvic fluid. Procedure Note Samuel Sanches MD - 08/15/2024 COMPARISON: KUB from overnight. ORAL CONTRAST: None. INTRAVENOUS CONTRAST: 100.0 mL of Omnipaque 350. No adverse eventsoccurred. TECHNIQUE: Contrast-enhanced axial images through the abdomen and pelvis.Multiplanar reformats. To lessen exposure, iterative reconstruction wasemployed. FINDINGS: Ferryboat Pilot Film: Mildly dilated colon, air-filled to the mid descending colonlevel. Axial Skeleton: Degenerative changes are present, mild at the lower lumbardisc levels and the pubic symphysis. Lung Bases: Dependent changes posteriorly. Abdomen: There is minimal low-density along the right side of thefalciform ligament that looks like focal fat. The liver, gallbladder,right adrenal gland, left adrenal gland, spleen and pancreas have a normalappearance. Nephrograms are symmetric. There are no perinephric inflammatory changes. There are 2 punctatedensities in the upper right kidney (series 3 image 91) that look morelike excreted contrast than stones. No acute kidney stones. Retroperitoneum: Visceral vessels enhance normally. There is a small softtissue nodule just ventral to the left link which measures about 7 mm inshort axis. This may be a lymph node or a lymphatic structure. Doubtfulclinical significance. Small left periaortic nodes and distal left external iliac nodes. No adenopathy. Bowel: Oral contrast was not used. The stomach and C-sweep, left upperquadrant small bowel are unremarkable. Fluid and stool filled colon. Theappendix is seen (series 2 image 66) and is not abnormal. No findings tosuggest a bowel obstruction or acute inflammatory process. Stool-filled rectum. Pelvis: Small inguinal nodes. The bladder is distended but not abnormal. 2cm cyst right ovary. The anteverted uterus looks normal. No free pelvicfluid. IMPRESSION: 1. No acute abnormality is seen in the abdomen or pelvis. 2. The rectum is stool-filled. Fluid-filled right colon with no wallthickening or disproportionate dilatation. 3. No evidence for an acute inflammatory process related to the bowel jack obstruction. Normal appendix. Alise Erwin PA-C IMG CT ORDERABLES Final R esult * hCG, serum, qualitative (08/15/2024 2:01 AM EDT) Beta-hCG, Qualitative Negative Negative 08/15/2024 7:01 AM EDT [facility] Blood Blood specimen / Unknown 08/15/2024 2:01 AM EDT 08/15/2024 6:47 AM EDT Mary Lou Long DO LAB BLOOD ORDERABLES Final R esult Performing Organization Address City/State/[facility] Co de Phone Number [address] [address], [address] [address] * XR Abdomen 1 view (08/14/2024 10:11 PM EDT) Anatomical Region Laterality Modality Abdomen Computed Radiogr aphy 08/15/2024 6:55 AM EDT Impressions 08/15/2024 6:55 AM EDT Normal abdominal radiograph. Narrative 08/15/2024 6:55 AM EDT COMPARISON: None TECHNIQUE: AP view of the abdomen FINDINGS: Normal bowel gas pattern. No evidence of pneumoperitoneum. Lung bases clear. Bones unremarkable. No appreciable urinary stones. Procedure Note Liang López MD - 08/15/2024 COMPARISON: None TECHNIQUE: AP view of the abdomen FINDINGS: Normal bowel gas pattern. No evidence of pneumoperitoneum. Lung basesclear. Bones unremarkable. No appreciable urinary stones. IMPRESSION: Normal abdominal radiograph. Alise Erwin PA-C IMG DIAGNOSTIC IMAGING OR DERABLES Final Result from Last 3 Months Insurance [facility] Care Teams Electric Blanket Packer Relationship Specialty Start Date End Date Javan Baca PA [address] [place] [address] PCP - General 08/15/24
--- OUTSIDE RECORDS SUMMARY | 2024-10-09 13:48 | XMS_ITS ---
Author Name [facility] Organization Unknown Results Test Name/Text Value Interpretation Date Range Source Glucose Ur Strip-mCnc Negative 08/19/2024 - [facility] Ketones Ur Strip-mCnc Negative 08/19/2024 - [facility] Nitrite Ur Ql Strip Negative 08/19/2024 - [facility] Hgb Ur Ql Strip Negative 08/19/2024 - [facility] CT Prot Ur Strip-mCnc Negative 08/19/2024 - [facility] Clarity Ur Clear 08/19/2024 [facility] Bilirub Ur Strip-mCnc Negative 08/19/2024 - [facility] Color Ur Straw 08/19/2024 H[facility] Leukocyte esterase Ur Ql Strip Negative 08/19/2024 - [facility]CT pH Ur Strip 7.0 08/19/2024 5 - 8 H[facility]CT Sp Gr Ur Strip 1.008 08/19/2024 1.003 - 1.03 H HCCT Magnesium SerPl-mCnc 2.0 mg/dL 08/19/2024 1.6 - 2. 7 HHCCT Lipase SerPl-cCnc 25.0 U/L 08/19/2024 13 - 60 H HCCT Anion Gap Bld-sCnc 11.0 08/19/2024 7 - 17 H[facility]CT Creat SerPl-mCnc 0.8 mg/dL 08/19/2024 0.4 - 1.1 HH CCT Glucose SerPl-mCnc 90.0 mg/dL 08/19/2024 65 - 99 HHCCT Calcium SerPl-mCnc 9.7 mg/dL 08/19/2024 8.7 - 10.5 HHCCT GFR/BSA.pred SerPlBld IAG-[id number]-[id number] >90.0 08/19/2024 59 - HHCCT ALT SerPl-cCnc 13.0 U/L 08/19/2024 10 - 50 HHCC T BUN/Creat SerPl 9.0 Ratio Below low normal 08/19/2024 10 - 2 5 HHCCT CO2 SerPl-sCnc 23.0 mmol/L 08/19/2024 22 - 33 HH CCT Albumin/Glob SerPl 1.6 Ratio 08/19/2024 H[facility]CT Sodium SerPl-sCnc 139.0 mmol/L 08/19/2024 136 - 14 5 HHCCT ALP SerPl-cCnc 68.0 U/L 08/19/2024 32 - 122 HHCC T Albumin SerPl-mCnc 4.6 g/dL 08/19/2024 3.5 - 5 HHCCT Globulin Ser Calc-mCnc 2.8 g/dL 08/19/2024 1.5 - 3.9 HHCCT Potassium SerPl-sCnc 4.8 mmol/L 08/19/2024 3.4 - 5 .3 HHCCT Chloride SerPl-sCnc 105.0 mmol/L 08/19/2024 98 - 1 07 HHCCT AST SerPl-cCnc 24.0 U/L 08/19/2024 10 - 50 HHCC T BUN SerPl-mCnc 7.0 mg/dL Below low normal 08/19/2024 8 - 21 HHCCT Prot SerPl-mCnc 7.4 g/dL 08/19/2024 6.3 - 8.[address] Bilirub SerPl-mCnc 0.5 mg/dL 08/19/2024 0.2 - 1 HHCCT Lactate SerPl-sCnc 0.8 mmol/L 08/19/2024 0.5 - 1.9 HHCCT WBC num Bld Auto 9.2 Thou/uL 08/19/2024 4 - 11 HHCCT Basophils/leuk NFr Bld Auto 0.5 % 08/19/2024 H[facility]CT PMV Bld Auto 10.6 fL 08/19/2024 7.5 - 12.5 HHCCT Neutrophils/leuk NFr Bld Auto 61.1 % 08/19/2024 H[facility]CT Lymphocytes/leuk NFr Bld Auto 23.9 % 08/19/2024 HHCCT MCV RBC Auto 89.0 fL 08/19/2024 80 - 100 HHCCT Imm Granulocytes/leuk NFr Bld Auto 0.3 % 08/19/2024 HHCCT Monocytes num Bld Auto 0.52 Thou/uL 08/19/2024 0.2 - 1.5 HHCCT Hgb Bld-mCnc 14.9 g/dL 08/19/2024 11.7 - 15.7 HH[facility] T Platelet num Bld Auto 260.0 Thou/uL 08/19/2024 150 - 450 HHCCT Basophils num Bld Auto 0.05 Thou/uL 08/19/2024 0 - 0.2 HHCCT Lymphocytes num Bld Auto 2.19 Thou/uL 08/19/2024 1.5 - 4.5 HHCCT Hct VFr Bld Auto 44.7 % 08/19/2024 35 - 47 HH CCT RDW RBC Auto-Rto 13.5 % 08/19/2024 11.5 - 14.5 HHCCT Neutrophils num Bld Auto 5.58 Thou/uL 08/19/2024 2 - 7.5 HHCCT Monocytes/leuk NFr Bld Auto 5.7 % 08/19/2024 HHCCT Eosinophil/leuk NFr Bld Auto 8.5 % 08/19/2024 HHCCT RBC num Bld Auto 5.03 Mil/uL 08/19/2024 4 - 5.4 HHCCT MCHC RBC Auto-mCnc 33.3 g/dL 08/19/2024 30 - 36 HHCCT Imm Granulocytes num Bld Auto 0.03 Thou/uL 08/19/2024 0 - 0.1 HHCCT MCH RBC Qn Auto 29.6 pg 08/19/2024 26 - [address] Eosinophil num Bld Auto 0.78 Thou/uL Above high normal 08/19/2024 0 - 0.7 HHCCT Albumin SerPl-mCnc 4.0 g/dL 08/16/2024 3.5 - 5 HHCCT GFR/BSA.pred SerPlBld [id number] >90.0 08/16/2024 59 - HHCCT Calcium SerPl-mCnc 8.7 mg/dL 08/16/2024 8.7 - 10.5 HHCCT ALT SerPl-cCnc 10.0 U/L 08/16/2024 10 - 50 HHCC T Sodium SerPl-sCnc 139.0 mmol/L 08/16/2024 136 - 14 5 HHCCT CO2 SerPl-sCnc 24.0 mmol/L 08/16/2024 22 - 33 HH CCT Glucose SerPl-mCnc 94.0 mg/dL 08/16/2024 65 - 99 HHCCT AST SerPl-cCnc 15.0 U/L 08/16/2024 10 - 50 HHCC T Potassium SerPl-sCnc 3.8 mmol/L 08/16/2024 3.4 - 5 .3 HHCCT BUN SerPl-mCnc 6.0 mg/dL Below low normal 08/16/2024 8 - 21 HHCCT Creat SerPl-mCnc 0.8 mg/dL 08/16/2024 0.4 - 1.1 HH CCT ALP SerPl-cCnc 60.0 U/L 08/16/2024 32 - 122 HHCC T Bilirub SerPl-mCnc 0.8 mg/dL 08/16/2024 0.2 - 1 HHCCT Globulin Ser Calc-mCnc 2.5 g/dL 08/16/2024 1.5 - 3.9 HHCCT Anion Gap Bld-sCnc 9.0 08/16/2024 7 - 17 HHCCT Chloride SerPl-sCnc 106.0 mmol/L 08/16/2024 98 - 1 07 HHCCT BUN/Creat SerPl 8.0 Ratio Below low normal 08/16/2024 10 - 2 5 HHCCT Albumin/Glob SerPl 1.6 Ratio 08/16/2024 HHCCT Prot SerPl-mCnc 6.5 g/dL 08/16/2024 6.3 - 8.[address] Lipase SerPl-cCnc 24.0 U/L 08/16/2024 13 - 60 H HCCT Lymphocytes/leuk NFr Bld Auto 23.8 % 08/16/2024 HHCCT Imm Granulocytes num Bld Auto 0.02 Thou/uL 08/16/2024 0 - 0.1 HHCCT Hct VFr Bld Auto 41.7 % 08/16/2024 35 - 47 HH CCT WBC num Bld Auto 9.5 Thou/uL 08/16/2024 4 - 11 HHCCT Neutrophils/leuk NFr Bld Auto 62.4 % 08/16/2024 HHCCT PMV Bld Auto 10.7 fL 08/16/2024 7.5 - 12.5 HHCCT Monocytes num Bld Auto 0.52 Thou/uL 08/16/2024 0.2 - 1.5 HHCCT RBC num Bld Auto 4.67 Mil/uL 08/16/2024 4 - 5.4 HHCCT RDW RBC Auto-Rto 13.3 % 08/16/2024 11.5 - 14.5 HHCCT Neutrophils num Bld Auto 5.9 Thou/uL 08/16/2024 2 - 7.5 HHCCT Basophils num Bld Auto 0.05 Thou/uL 08/16/2024 0 - 0.2 HHCCT Imm Granulocytes/leuk NFr Bld Auto 0.2 % 08/16/2024 H[facility]CT Monocytes/leuk NFr Bld Auto 5.5 % 08/16/2024 [facility] M[facility] RBC Auto 89.0 fL 08/16/2024 80 - 100 H[facility]CT Eosinophil num Bld Auto 0.72 Thou/uL Above high normal 08/16/2024 0 - 0.7 HHCCT MCHC RBC Auto-mCnc 32.4 g/dL 08/16/2024 30 - 36 HHCCT Basophils/leuk NFr Bld Auto 0.5 % 08/16/2024 HHCCT Platelet num Bld Auto 244.0 Thou/uL 08/16/2024 150 - 450 HHCCT Hgb Bld-mCnc 13.5 g/dL 08/16/2024 11.7 - 15.7 HH T Lymphocytes num Bld Auto 2.25 Thou/uL 08/16/2024 1.5 - 4.5 HHCCT Eosinophil/leuk NFr Bld Auto 7.6 % 08/16/2024 [facility] MCH RBC Qn Auto 28.9 pg 08/16/2024 26 - [address] Glucose Ur Strip-mCnc Negative 08/15/2024 - [facility] Hgb Ur Ql Strip Negative 08/15/2024 - [facility] CT Sp Gr Ur Strip 1.047 Above high normal 08/15/2024 1.003 - 1.03 HHCCT Ketones Ur Strip-mCnc Negative 08/15/2024 - CCT Color Ur Yellow 08/15/2024 HHCCT Clarity Ur Slightly cloudy 08/15/2024 HH CCT Leukocyte esterase Ur Ql Strip Negative 08/15/2024 - CCT pH Ur Strip 6.0 08/15/2024 5 - 8 HHCCT Prot Ur Strip-mCnc Negative 08/15/2024 - CCT Bilirub Ur Strip-mCnc Negative 08/15/2024 - CCT Nitrite Ur Ql Strip Negative 08/15/2024 - CCT B-HCG Preg SerPl Ql Negative 08/15/2024 - CCT Albumin/Glob SerPl 1.5 Ratio 08/15/2024 HHCCT Sodium SerPl-sCnc 139.0 mmol/L 08/15/2024 136 - 14 5 HHCCT Creat SerPl-mCnc 0.7 mg/dL 08/15/2024 0.4 - 1.1 HH CCT Albumin SerPl-mCnc 4.4 g/dL 08/15/2024 3.5 - 5 HHCCT AST SerPl-cCnc Specimen hemolyzed. Test not performed. 08/15/2024 10 - 50 HHCCT GFR/BSA.pred SerPlBld CNR-PNM-KmKKpl >90.0 08/15/2024 59 - HHCCT BUN/Creat SerPl 13.0 Ratio 08/15/2024 10 - 25 HH CCT BUN SerPl-mCnc 9.0 mg/dL 08/15/2024 8 - 21 [facility] T Globulin Ser Calc-mCnc 2.9 g/dL 08/15/2024 1.5 - 3.9 HHCCT Potassium SerPl-sCnc 4.8 mmol/L 08/15/2024 3.4 - 5 .3 HHCCT CO2 SerPl-sCnc 22.0 mmol/L 08/15/2024 22 - 33 HH CCT Anion Gap Bld-sCnc 12.0 08/15/2024 7 - 17 HHCCT Glucose SerPl-mCnc 89.0 mg/dL 08/15/2024 65 - 99 HHCCT Prot SerPl-mCnc 7.3 g/dL 08/15/2024 6.3 - 8.[address] ALP SerPl-cCnc 59.0 U/L 08/15/2024 32 - 122 HHCC T Calcium SerPl-mCnc 9.4 mg/dL 08/15/2024 8.7 - 10.5 HHCCT ALT SerPl-cCnc 13.0 U/L 08/15/2024 10 - 50 HHCC T Chloride SerPl-sCnc 105.0 mmol/L 08/15/2024 98 - 1 07 HHCCT Bilirub SerPl-mCnc 0.5 mg/dL 08/15/2024 0.2 - 1 HHCCT Lipase SerPl-cCnc 41.0 U/L 08/15/2024 13 - 60 H HCCT Neutrophils/leuk NFr Bld Auto 55.6 % 08/15/2024 HHCCT MCV RBC Auto 90.0 fL 08/15/2024 80 - 100 HHCCT Lymphocytes/leuk NFr Bld Auto 29.6 % 08/15/2024 HHCCT Imm Granulocytes/leuk NFr Bld Auto 0.3 % 08/15/2024 HHCCT MCHC RBC Auto-mCnc 33.1 g/dL 08/15/2024 30 - 36 HHCCT RDW RBC Auto-Rto 13.3 % 08/15/2024 11.5 - 14.5 HHCCT Eosinophil/leuk NFr Bld Auto 8.0 % 08/15/2024 HHCCT RBC num Bld Auto 4.82 Mil/uL 08/15/2024 4 - 5.4 HHCCT MCH RBC Qn Auto 29.7 pg 08/15/2024 26 - [address] Basophils/leuk NFr Bld Auto 0.7 % 08/15/2024 HHCCT Neutrophils num Bld Auto 5.97 Thou/uL 08/15/2024 2 - 7.5 HHCCT Basophils num Bld Auto 0.07 Thou/uL 08/15/2024 0 - 0.2 HHCCT Hgb Bld-mCnc 14.3 g/dL 08/15/2024 11.7 - 15.7 HHCC T Imm Granulocytes num Bld Auto 0.03 Thou/uL 08/15/2024 0 - 0.1 HHCCT Monocytes/leuk NFr Bld Auto 5.8 % 08/15/2024 HHCCT WBC num Bld Auto 10.7 Thou/uL 08/15/2024 4 - 11 HHCCT PMV Bld Auto 11.4 fL 08/15/2024 7.5 - 12.5 HHCCT Eosinophil num Bld Auto 0.86 Thou/uL Above high normal 08/15/2024 0 - 0.7 HHCCT Monocytes num Bld Auto 0.62 Thou/uL 08/15/2024 0.2 - 1.5 HHCCT Platelet num Bld Auto 242.0 Thou/uL 08/15/2024 150 - 450 HHCCT Lymphocytes num Bld Auto 3.18 Thou/uL 08/15/2024 1.5 - 4.5 HHCCT Hct VFr Bld Auto 43.2 % 08/15/2024 35 - 47 HH CCT History of Medication Use Medication Directions Dispensed Refills Start Date End Date Stat us tamsulosin (FLOMAX) 0.4 MG capsule Take 1 capsule (0.4 mg total) by mouth daily. 08/22/2024 active linaclotide (LINZESS) 145 MCG Cap capsule Take 1 capsule (145 mcg total) by mouth every morning before breakfast. 08/19/2024 active cephalexin (KEFLEX) 500 MG capsule Take 1 capsule (500 mg total) by mouth 2 (two) times a day. Take as directed or until you run out 08/15/2024 08/23/2024 completed docusate sodium (COLACE) 100 MG capsule Take 1-2 capsules (100-200 mg total) by mouth nightly as needed for constipation. Take with of water 08/15/2024 active lactulose (ENULOSE) 10 gm/15 mL solution Take 10-20 mL (6.6667-13.3333 g total) by mouth daily as needed (constipation). take with eight ounces of water 08/15/2024 active Allergies Allergen Reaction Severity Comment Documented Date Source Statu s MIDAZOLAM UNKNOWN/PATIENT AND FAMILY UNABLE TO DEFINE pt has a paradoxical reaction to Versed. Becomes agitated and combative.,combativ e 03/25/2022 CCT active Problems Problem Status Onset Date Problem Type Date of Resoluti on Source Urinary retention with incomplete bladder emptying active 2024-08-22 ProblemAct CCT Encounters Encounter Type Encounter Reason Primary Diagnosis Location Date Ambulatory Retention of urine, unspecified Retention of urine, unspecified [facility] 08/22/2024 Emergency Constipation, unspecified Constipation, unspecified [facility] 08/19/2024 Emergency Weakness Weakness [employer] 08/16/2024 Emergency Constipation, unspecified Constipation, unspecified [facility] 08/15/2024 Emergency Unspecified injury of unspecified wrist, hand and finger(s), initial encounter Unspecified injury of unspecified wrist, hand and finger(s), initial encounter [facility] 06/16/2024 Care Team Organization Name Specialty Phone Email Start Date End Da te [facility] 08/15/2024 [facility] Primary Care 08/15/2024 [facility] 06/19/2024 09/20/2024 [facility] 06/17/2024
== END 2024-10-09 13:59 | disposition home or self-care (01) ==
PROVIDERS: Visit Provider Nurse Practitioner Family
DX: K59.01 Slow transit constipation (principal); K58.1 Irritable bowel syndrome with constipation; K21.9 Gastro-esophageal reflux disease without esophagitis; R10.84 Generalized abdominal pain
CPT/HCPCS: 99204

== ENCOUNTER → 2024-10-09 13:00 | Outpatient (BNVA) | payer OTHER, MEDICARE, SELFPAY | PROVIDERS: Visit Provider Nurse Practitioner Family | DX: K59.01 Slow transit constipation (principal); K58.1 Irritable bowel syndrome with constipation; K21.9 Gastro-esophageal reflux disease without esophagitis; R10.84 Generalized abdominal pain | CPT/HCPCS: 99202 ==

== ENCOUNTER 2024-11-06 14:27 | Outpatient (AMB) | payer MEDICARE, SELFPAY ==
[2024-11-06 14:28] VITALS: BP 112/72; PULSE 72; O2SAT 99; BMI 24.5
--- NOTE | 2024-11-06 14:28 | MHC.OFFVIS ---
Vital Signs 11/06/24 14:28 Height 5 ft 10 in Weight 171 lb BMI 24.5 BP 112/72 Blood Pressure Location Rt brachial Position Sitting Pulse 72 Pulse Source Pulse Oximeter Pulse Oximetry (%) 99 Oxygen Delivery Method Room Air Intake Visit Reasons: 4 week FUV. CIC. Intake Note: Est pt for mgmt of chronic abd pain and CIC. CC; C.O. persistence of nausea and lack of appetite despite current tx. Pt states that there has been a very slight improvement but that their sx are still quite significant. 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 CIC.: Details: LAST VISIT Constipation IBS (irritable bowel syndrome) GERD (gastroesophageal reflux disease) Abdominal pain Plan Patient was encouraged to increase fluid intake and activity to promote better bowel motility. Patient can try fiber with pre info biotics. Magnesium citrate given to him he can take it half of bilateral when he gets home and if no results in 2-3 hours he can take a 2nd have. He can use it as needed if no bowel movements for 2-3 days. I will start him on Amitiza. Tried starting patient on Linzess, however insurance does not cover it. Patient will return in 3 weeks. He will call us if he will have worsening symptoms. He is agreeable to this plan and verbalizes understanding of instructions. He was given the opportunity to ask questions and all questions answered. ? Thank you for allowing me to participate in his care New lubiprostone (Amitiza) 24 mcg PO DAILY 30 caps 3RF K59.04 magnesium citrate (Citrate of Magnesia oral) 150 mL PO DAILY PRN 296 mL 5RF constipation K59.00 TODAY'S VISIT Patient is here today for follow-up. Patient reports that he is continuing to be constipated. Abdominal pain and cramping before having urge to have a bowel movement. Taking Amitiza in the morning. Was taking 1 Dulcolax daily. Patient reports that he is moving his bowels better, however he continues to be constipated. Patient denies melena, hematochezia, unintentional weight loss or ribbon like stools. Patient reports to have a good appetite. Denies any nausea or vomiting. Denies dyspepsia, dysphagia or odynophagia. [facility] Medical History Constipation Surgical History History of tonsillectomy History of dental surgery Social History Patient Tobacco Use Status: Never used Tobacco Current occupational status: unemployed Review of Systems Const Denies weight gain and Denies weight loss ENT Reports no additional complaints, Denies dysphagia and Denies odynophagia Card Reports no additional complaints Resp Reports no additional complaints GI Reports abdominal pain, Denies belching, Denies melena, Denies bloating, Denies change in bowel habits, Reports constipation, Denies dysphagia, Denies excessive flatus, Denies dyspepsia, Denies heartburn, Denies diarrhea, Denies loose stools, Denies nausea, Denies odynophagia and Denies vomiting Reports no additional complaints Musc Reports no additional complaints Neuro Reports no additional complaints Psych Reports no additional complaints Endo Reports no additional complaints Physical Exam Vital Signs: Last Vital Signs Pulse 72 11/06/24 14:28 BP 112/72 11/06/24 14:28 Pulse Ox 99 11/06/24 14:28 Oxygen Delivery Method Room Air 11/06/24 14:28 BMI result Body Mass Index 24.5 Const General: healthy appearing, no acute distress and well developed Nutritional Appearance: well nourished Orientation/consciousness: patient oriented x3 Resp Effort & Inspection: normal respiratory effort, able to speak in complete sentences, no tracheal deviation and symmetric chest movement Auscultation: clear to auscultation bilaterally Cardio Rate: regular rate GI Inspection: Yes normal to inspection and No distended Palpation (GI): Soft to palpation, not firm, nontender and No hepatosplenomegaly present Auscultation: normal bowel sounds General: Yes no CVA tenderness Back/Spine/Pelvis Back: no CVA tenderness Skin General skin exam: elasticity normal, turgor normal and dry skin Neuro General: patient oriented x3 Psych Appearance: grossly normal Mental Status: mental status grossly normal Assessment & Plan Assessment & Plan (1) Constipation: Code(s): K59.00 - Constipation, unspecified Qualifiers: Constipation type: slow transit constipation Qualified Code(s): K59.01 - Slow transit constipation (2) Irritable bowel syndrome: Code(s): K58.9 - Irritable bowel syndrome, unspecified Qualifiers: Irritable bowel syndrome type: without diarrhea Qualified Code(s): K58.9 - Irritable bowel syndrome, unspecified (3) Gastroesophageal reflux disease: Code(s): K21.9 - Gastro-esophageal reflux disease without esophagitis Qualifiers: Esophagitis presence: esophagitis presence not specified Qualified Code(s): K21.9 - Gastro-esophageal reflux disease without esophagitis (4) Abdominal pain: Code(s): R10.9 - Unspecified abdominal pain Qualifiers: Abdominal location: generalized Qualified Code(s): R10.84 - Generalized abdominal pain Plan Continue avoiding dietary triggers. Increase Dulcolax to 2 tablets at night as needed. We will increase Amitiza to twice a day. May take Dulcolax at bedtime if no bowel movement in 1-2 days. Increase fluid intake and activity to promote bowel motility. Patient was also instructed to take dtal-yrt-[id number] fiber with pre and probiotics. Follow-up in the office in 3 months. Patient was encouraged to call us if he will have no improvement in his symptoms. He is agreeable to this plan and verbalizes understanding of instructions. He was given the opportunity to ask questions and all questions answered. Thank you for allowing me to participate in his care Medications: Changed From bisacodyl 5 mg PO DAILY PRN constipation To bisacodyl 10 mg (2 x 5 mg) PO DAILY PRN 180 tabs 1RF constipation From lubiprostone 24 mcg PO DAILY 30 caps 3RF K59.04 - Chronic idiopathic constipation To lubiprostone (Amitiza) 24 mcg PO BID 60 caps 3RF K59.04 - Chronic idiopathic constipation Coding Level of Care Code Est Pt Level 3 (55277) Diagnoses Slow transit constipation K59.01 Constipation type: slow transit constipation Irritable bowel syndrome without diarrhea K58.9 Irritable bowel syndrome type: without diarrhea Gastroesophageal reflux disease, unspecified whether esophagitis present K21.9 Esophagitis presence: esophagitis presence not specified Generalized abdominal pain R10.84 Abdominal location: generalized Time Spent (min) 30 Comment 20 minutes spent with patient and additional 10 minutes spent reviewing his records
--- OUTSIDE RECORDS SUMMARY | 2024-11-06 17:01 | XMS_ITS | Clinical Summary ---
Author Organization Formerly [facility] Address [address] [place] [id number] Care Team Providers Care Senior Clinical Research Scientist Name Role Phone Javan Baca Primary Care Provider [phone] Allergies Active Allergy Reactions Criticality Noted Date [...] EDT Office Visit [facility] [address] [place] [address] [place] [phone] Dixon Castillo MD Urinary retention with incomplete bladder emptying (Primary Dx) 08/22/2024 Travel 08/19/2024 10:08 AM EDT - 08/19/2024 6:33 PM EDT Emergency [facility] Emergency Department [address] [place] [phone] Kday De Los Santos MD Constipation (Primary Dx) Discharge Disposition: Home or Self Care 08/19/2024 Travel 08/16/2024 2:05 PM EDT - 08/16/2024 4:32 PM EDT Emergency [facility] Emergency Department [address] [place] [phone] Sawyer Cevallos APRN Generalized weakness (Primary Dx); Constipation Discharge Disposition: Home or Self Care 08/15/2024 1:21 AM EDT - 08/15/2024 1:04 PM EDT [facility] Emergency Department [address] [place] [phone] Alise Erwin PA-C Constipation (Primary Dx); Urinary retention Discharge Disposition: Home or Self Care 08/15/[address] [phone] System, Provider Not In 08/14/2024 [...] PCV) 2021 Pap Smear (Ages 21-65) 05/23/2023 Influenza Vaccine 09/28/2024 04/27/2024, , 12/14/2018, Additional history exists COVID-19 Vaccine (2024-2 6 season) 2024 09/28/2021, 08/14/2020, 07/24/2020 Procedures Procedure Name Priority Date/Time Associated Diagnosis [...] 08/19/2024 1:18 PM EDT [facility] Specific [place] 1.008 1.003 - 1.030 08/19/2024 1:18 PM [...] Blood Negative Negative 08/19/2024 1:18 PM EDT [facility] Bilirubin Negative Negative 08/19/2024 1:18 PM EDT [facility] Urine Urine specimen obtained by clean catch procedure / Unknown 08/19/2024 1:08 PM EDT 08/19/2024 1:12 PM EDT Kady De Los Santos MD URINE ORDERABLES Final Res ult [facility] [address] [place] [address], [facility] [address] [place] [address] * (ABNORMAL) Complete Blood Count, with Differential (08/19/2024 12:18 PM EDT) Only the most recent of3 resultswithin the time period is included. White Blood Cell Count 9.2 4.0 - 11.0 Thou/uL 08/19[facility] 12[facility] Platelet Count 260 150 - 450 Thou/uL 08/19/2024 12:[facility] Hemoglobin 14.9 11.7 - 15.7 g/dL 08/19/2024 12:30 PM EDT [facility] Hematocrit 44.7 35.0 - 47.0 % 08/19/2024 12:30 PM EDT [facility] Red Blood Cell Count 5.03 4.00 - 5.40 Mil/uL 08/19/2024 12:[facility] MCV 89 80 - 100 fL 08/19/2024 12:30 PM EDT [facility] MCH 29.6 26.0 - 34.0 pg 08/19/2024 12:30 PM EDT [facility] MCHC 33.3 30.0 - 36.0 g/dL 08/19/2024 12:30 PM EDT [facility] RDW 13.5 11.5 - 14.5 % 08/19/2024 12:30 PM EDT [facility] MPV 10.6 7.5 - 12.5 fL 08/19/2024 12:30 PM EDT [facility] Neutrophils Auto 61.1 % 08/20/19 12:30 PM EDT [facility] Immature Granulocytes 0.3 % 08/19/2024 12:30 PM EDT [facility] Lymphocytes Auto 23.9 % 08/20/19 12:30 PM EDT [facility] Monocytes Auto 5.7 % 08/19/2024 12:30 PM EDT [facility] Eosinophils Auto 8.5 % 08/20/19 12:30 PM EDT [facility] Basophils Auto 0.5 % 08/19/2024 12:30 PM EDT [facility] Abs Neutrophils Auto 5.58 2.00 - 7.50 Thou/uL 08/19/2024 12:30 PM EDT [facility] Abs Immature Granulocytes 0.03 0.00 - 0.10 Thou/uL 08/19/2024 12:30 PM EDT [facility] Abs Lymphocytes Auto 2.19 1.50 - 4.50 Thou/uL 08/19/2024 12:30 PM EDT [facility] Abs Monocytes Auto 0.52 0.20 - 1.50 Thou/uL 08/19/2024 12:30 PM EDT [facility] Abs Eosinophils Auto 0.78(H) 0.00 - 0.70 Thou/uL 08/19/2024 12:30 PM EDT [facility] Abs Basophils Auto 0.05 0.00 - 0.20 Thou/uL 08/19/2024 12:30 PM EDT [facility] Blood Blood specimen / Unknown 08/19/2024 12:18 PM EDT 08/19/2024 12:20 PM EDT Kady De Los Santos MD LAB BLOOD ORDERABLES Final Result [facility] [address] [place] [address], [facility] [address] [place] [address] * Magnesium (08/19/2024 12:18 PM EDT) Magnesium 2.0 1.6 - 2.7 mg/dL 08/19/2024 12:52 PM EDT [facility] Blood Blood specimen / Unknown 08/19/2024 12:18 PM EDT 08/19/2024 12:20 PM EDT Kady De Los Santos MD LAB BLOOD ORDERABLES Final Result Performing Organization Address [facility] Co de Phone Number [facility] [address] [place] [address], [place] [address] * Lipase (08/19/2024 12:18 PM EDT) Only the most recent of3 resultswithin the time period is included. Lipase 25 13 - 60 U/L 08/19/2024 12:52 PM EDT [facility] Blood Blood specimen / Unknown 08/19/2024 12:18 PM EDT 08/19/2024 12:20 PM EDT Kady De Los Santos MD LAB BLOOD ORDERABLES Final Result Performing Organization Address [facility] de Phone Number [facility] [address] [place] [address], [place] [address] * Lactic Acid, Plasma Now and repeat in 2h (08/19/2024 12:18 PM EDT) Lactic Acid 0.8 0.5 - 1.9 mmol/L 08/19/2024 12:50 PM EDT [facility] Blood Blood specimen / Unknown 08/19/2024 12:18 PM EDT 08/19/2024 12:20 PM EDT Kady De Los Santos MD LAB BLOOD ORDERABLES Final Result Performing Organization Address [facility] Co de Phone Number [facility] [address] [place] [address], [place] [address] * (ABNORMAL) Comprehensive Metabolic Panel (08/19/2024 12:18 PM EDT) Only the most recent of3 resultswithin the time period is included. Glucose 90 65 - 99 mg/dL 08/19/2024 12:52 PM [facility] Comment:Fasting: <100 mg/dL, Non-Fasting: <200 mg/dL (ADA 2004) Blood Urea Nitrogen (BUN) 7(L) 8 - 21 mg/dL 08/19/2024 12:52 PM [facility] Creatinine 0.8 0.4 - 1.1 mg/dL 08/19/2024 12:52 PM [facility] eGFR >90 >59 08/19/2024 12:52 PM [facility] Comment:CKD-EPI (2020) in mL /min/1.73 sq meters. Sodium 139 136 - 145 mmol/L 08/19/2024 12:52 PM [facility] Potassium 4.8 3.4 - 5.3 mmol/L 08/19/2024 12:52 PM [facility] Comment:Specimen hemolyzed. Results may be artifactually elevated. Chloride 105 98 - 107 mmol/L 08/19/2024 12:52 PM [facility] CO2 23 22 - 33 mmol/L 08/19/2024 12:52 PM [facility] Calcium 9.7 8.7 - 10.5 mg/dL 08/19/2024 12:52 PM [facility] Alkaline Phosphatase 68 32 - 122 U/L 08/19/2024 12:52 PM [facility] Aspartate Aminotrans (AST) 24 10 - 50 U/L 08/19/2024 12:52 PM [facility] Comment:Specimen hemolyzed. Results may be artifactually elevated. Alanine Aminotrans (ALT) 13 10 - 50 U/L 08/19/2024 12:52 PM [facility] Comment:Specimen hemolyzed. Results may be artifactually elevated. Bilirubin, Total 0.5 0.2 - 1.0 mg/dL 08/19/2024 12:52 PM [facility] Protein, Total 7.4 6.3 - 8.3 g/dL 08/19/2024 12:52 PM [facility] Albumin 4.6 3.5 - 5.0 g/dL 08/19/2024 12:52 PM [facility] BUN/Creatinine Ratio 9(L) 10.0 - 25.0 Ratio 08/19/2024 12:52 PM [facility] Globulin 2.8 1.5 - 3.9 g/dL 08/19/2024 12:52 PM EDT [facility] Albumin/Globulin Ratio 1.6 Ratio 08/19/2024 12:52 PM EDT [facility] Anion Gap 11 7 - 17 08/19/2024 12:52 PM EDT [facility] Blood Blood specimen / Unknown 08/19/2024 12:18 PM EDT 08/19/2024 12:20 PM EDT Kady De Los Santos MD LAB BLOOD ORDERABLES Final Result [facility] [address] [place] [address], [facility] [address] [place] [address] * CT Abdomen+pelvis w/contrast (08/15/2024 7:31 AM [...] lessen exposure, iterative reconstruction was employed. FINDINGS: Guard Rail Installer Film: Mildly dilated colon, air-filled to the [...] To lessen exposure, iterative reconstruction wasemployed. FINDINGS: Guard Rail Installer Film: Mildly dilated colon, air-filled to the [...] Qualitative Negative Negative 08/15/2024 7:01 AM EDT [facility] Blood Blood specimen / Unknown 08/15/2024 2:01 AM EDT 08/15/2024 6:47 AM EDT Mary Lou Long DO LAB BLOOD ORDERABLES Final R esult Performing Organization Address City/State/[facility] Co de Phone Number [address] [address], [address] [address] * XR Abdomen 1 view (08/14/2024 10:11 [...] Final Result from Last 3 Months Insurance [facility] Care Teams Senior Clinical Research Scientist Relationship Specialty Start Date End Date Javan Baca PA [address] [place] [address] PCP - General 08/15/24
--- OUTSIDE RECORDS SUMMARY | 2024-11-06 17:01 | XMS_ITS | Encounter Summary ---
Author Organization Formerly [facility] Address [address] [place] [address] Care Team Providers Care Automatic Coin Machine Mechanic Name Role Phone Javan Baca Primary Care Provider [phone] Encounter Details Date Type Department Care Team (Late st Contact Info) Description 08/15/[address] [phone] System, Provider Not In Social History Tobacco Use Types Packs/Day Years Used Date Smoking Tobacco: Never Assessed Comments No Sex and Gender Information Value Date Recorded Sex Assigned at Female 06/16/2024 8:43 PM EDT Legal Sex Female 7:53 PM EDT Gender Identity Transgender Male 06/16/2024 8:43 PM EDT Sexual Orientation Choose not to disclose 2024 8:43 PM EDT documented as of this encounter Plan of Treatment Not on file documented as of this encounter Visit Diagnoses Not on filedocumented in this encounter Care Teams Automatic Coin Machine Mechanic Relationship Specialty Start Date End Date Javan Baca PA [address] [place] [address] PCP - General 08/15/24 documented as of this encounter
== END 2024-11-06 14:59 | disposition home or self-care (01) ==
LOC: HO.HGI 14:27
PROVIDERS: Visit Provider Nurse Practitioner Family
DX: K59.01 Slow transit constipation (principal); K58.9 Irritable bowel syndrome, unspecified; K21.9 Gastro-esophageal reflux disease without esophagitis; R10.84 Generalized abdominal pain
CPT/HCPCS: 99213

== ENCOUNTER → 2024-11-06 14:27 | Outpatient (BNVA) | payer MEDICARE, OTHER, SELFPAY | PROVIDERS: Visit Provider Nurse Practitioner Family | DX: K59.01 Slow transit constipation (principal); K58.9 Irritable bowel syndrome, unspecified; K21.9 Gastro-esophageal reflux disease without esophagitis; R10.84 Generalized abdominal pain | CPT/HCPCS: 99212 ==